=== PATIENT | female | born 1980 | race African-American/Black ===

== ENCOUNTER 2019-03-08 09:03 | Outpatient (CLI) | payer MEDICAID ==
--- NOTE | 2019-03-08 10:11 | ULT ---
RIGHT UPPER QUADRANT AND GALLBLADDER ULTRASOUND: INDICATION: Epigastric pain. FINDINGS: Images through the gallbladder reveal numerous echogenic gallstones. gallbladder is mildly contracte d and poorly evaluated. The common duct is normal in caliber measured at 4 mm. Visualized liver is unremarkable. The visualized right kidney is unremarkable. The technologist describes negative Murp hy's. IMPRESSION: Cholelithiasis. POS: TPC
== END 2019-03-08 09:04 | disposition home or self-care (01) ==
LOC: BICULT 09:03
PROVIDERS: ATTEND Internal Medicine Gastroenterology
DX: K21.9 Gastro-esophageal reflux disease without esophagitis (principal); R10.13 Epigastric pain; R11.2 Nausea with vomiting, unspecified; K80.20 Calculus of gallbladder without cholecystitis without obstruction
CPT/HCPCS: 76705

== ENCOUNTER 2019-04-10 10:36 | Outpatient (CLI) | payer OTHER ==
[2019-04-10 13:18] LABS: ALT (SGPT) 13 U/L (8-55); AST (SGOT) 16 U/L (5-34); Albumin 4.1 g/dL (3.5-5.0); Alkaline Phosphatase 80 U/L (40-110); Anion Gap 9 mmol/L (10-20); BUN (Urea Nitrogen) 5 mg/dL (7.0-18.7); Bilirubin, Direct 0.1 mg/dL (0.1-0.3); Bilirubin, Total 0.3 mg/dL (0.2-1.2); Calc. Creatinine Clearance 0 mL/min (70-130); Calcium 9.1 mg/dL (7.8-10.44); Carbon Dioxide 27 mmol/L (22-29); Chloride 108 mmol/L (98-107); Estimated GFR-MDRD Greater than 90; Glucose 76 mg/dL (70-105); Protein, Total 7.2 g/dL (6.0-8.3); Sodium 140 mmol/L (136-145)
[2019-04-10 13:34] LABS: Hemoglobin 12.9 g/dL (12.0-16.0); Mean Corpuscular HGB CONC 32.7 g/dL (32.0-36.0); Mean Corpuscular Hemoglobin 28.6 pg (27.0-31.0); Mean Corpuscular Volume 87.6 fL (78.0-98.0); Mean Platelet Volume 8.3 fL (7.4-10.4); Platelet Count 193 thou/uL (130-400); Red Blood Cell (RBC) Count 4.52 mill/uL (4.20-5.40); White Blood Cell (WBC) Count 6.2 thou/uL (4.8-10.8)
[2019-04-10 13:35] LABS: Band 5 % (5-11); Eosinophils 6 % (0-10); Lymphocytes 55 % (21-51); MDiff Complete? YES; Monocytes 3 % (0-10); Neutrophil 24 % (42-75); Platelet Morphology Comment Appears Adequate; RBC Morphology Normal; Reactive Lymphocytes 5 % (0-10)
[2019-04-10 13:45] LABS: BHCG - Serum Negative (NEGATIVE); Pregs Control Background? CLEAR/WHITE (CLR/WHITE); Pregs Control Bar Appear? YES (CONTROL BAR)
== END 2019-04-10 10:37 | disposition home or self-care (01) ==
LOC: LABBT 10:36
PROVIDERS: ATTEND Surgery
DX: Z01.812 Encounter for preprocedural laboratory examination (principal); K80.20 Calculus of gallbladder without cholecystitis without obstruction
CPT/HCPCS: 80048; 80076; 84703; 85025

== ENCOUNTER 2019-04-13 07:11 | Day surgery (SDC) | payer OTHER ==
[2019-04-10 10:25] VITALS: BMI 29.2
[2019-04-13] MEDS ORDERED: ceFOXitin 2 GM/50 ML Duplex BAG ONE (07:43)
[2019-04-13] MEDS ORDERED: Fentanyl 100 MCG/2 ML VIAL ONE ×4 (09:37→11:47)
[2019-04-13] MEDS ORDERED: Bupivacaine 0.25% HCL 30 ML VIAL ONE (09:43)
[2019-04-13] MEDS ORDERED: EPINEPHrine 1 MG/ML AMP ONE (09:43)
[2019-04-13] MEDS ORDERED: Lidocaine 1% PF 5 ML VIAL ONE (10:12)
[2019-04-13] MEDS ORDERED: Dexamethasone 20 MG/5 ML VIAL ONE (10:12)
[2019-04-13] MEDS ORDERED: Ondansetron PF 4 MG/2 ML Vial ONE (10:12)
[2019-04-13] MEDS ORDERED: Ketorolac Tromethamine 30 MG/ML VIAL ONE (10:12)
[2019-04-13] MEDS ORDERED: PROPOFOL 200 MG/20 ML VIAL ONE (10:12)
[2019-04-13] MEDS ORDERED: Rocuronium Bromide 10 MG/ML (10ML VIAL) ONE (10:12)
[2019-04-13] MEDS ORDERED: Glycopyrrolate 0.2 MG/ML 5 ML SYRINGE ONE (10:12)
[2019-04-13] MEDS ORDERED: Promethazine HCl 25 MG/ML VIAL ONE (11:03)
--- NOTE | 2019-04-13 11:58 | OP ---
DATE OF PROCEDURE: 04/13/2019 PREOPERATIVE DIAGNOSIS: Symptomatic cholelithiasis. PROCEDURE PERFORMED: Laparoscopic cholecystectomy. INDICATIONS: A 38-year-old female, who has been having episodic right upper quadrant pain radiating to the back, associated with nausea. Ultrasound showed cholelithiasis. FINDINGS: Multiple large stones, small cystic duct. DESCRIPTION OF PROCEDURE: After informed consent was obtained, the patient was taken to the operating room, given general endotracheal anesthesia and placed in the supine position. Abdomen was prepped and draped in usual fashion. Local anesthesia was infiltrated subcutaneously and deep and a subumbilical incision was performed, subcu divided sharply. The fascia was grasped with 2 stay sutures of 0 Vicryl placed on either side of midline. The midline incised. Digital palpation revealed no local adhesions. A blunt 12-mm trocar inserted. Pneumoperitoneum was created to a pressure of 15 mmHg. A 0-degree laparoscope was inserted under direct vision. Three 5-mm ports were placed subcostally. The gallbladder was grasped and advanced superiorly. The peritoneum was opened up to dissect out the cystic duct artery in critical view. The duct and artery were triply ligated with hemoclips and divided. The gallbladder removed from its fossa utilizing electrocautery, removed from the abdomen through the umbilical port. Hemostasis was assured. Trocars and retractors removed. The fascia was closed with interrupted 0 Vicryl suture. The skin closed with interrupted 4-0 Rapide. Dermabond applied. The patient tolerated the procedure well, transferred to Recovery in good condition. Sponge and needle count verified correct x2. Job ID: [id number]
[2019-04-13] MEDS ORDERED: HYDROcodone/Acetaminophen 5/325 mg Tablet ONE (13:06)
== END 2019-04-13 14:00 | disposition home or self-care (01) ==
LOC: SDC 07:11
PROVIDERS: ATTEND Surgery
PROC: 0FT44ZZ Resection of Gallbladder, Percutaneous Endoscopic Approach (ICD-10-PCS; principal; 2019-04-13)
DX: K80.10 Calculus of gallbladder with chronic cholecystitis without obstruction (principal); F17.210 Nicotine dependence, cigarettes, uncomplicated; Z79.899 Other long term (current) drug therapy
CPT/HCPCS: 88304; J0171; J0694; J2550; J3010; S0020

== ENCOUNTER 2019-11-09 10:36 | Outpatient (CLI) | payer OTHER | END 2019-11-09 10:37 | disposition home or self-care (01) | LOC: CTENTCT 10:36 | PROVIDERS: ATTEND Otolaryngology Plastic Surgery within the Head & Neck | DX: J32.9 Chronic sinusitis, unspecified (principal) | CPT/HCPCS: 70486 ==